=== PATIENT | male | born 1995 | race Caucasian/White ===

== ENCOUNTER 2020-12-20 16:34 | Emergency (ER) | payer SELFPAY ==
[~2020-12-20 16:34] MED LIST: ASPIRIN CHEWABL81 MG PO
[2020-12-20 17:42] LABS: BUN/CREATININE RATIO 9 (0-10)
[2020-12-20 17:44] LABS: HEMOGLOBIN 17.5 gm/dl (14.0-17.5); RED BLOOD COUNT 5.39 M/UL (4.20-5.50); WHITE BLOOD COUNT 7.2 K/UL (4.5-11.0)
[2020-12-20] MEDS ORDERED: ZOFRAN ODT 4 MG4 MG PO (19:31)
[2020-12-20] MEDS ORDERED: BENTYL 10MG CAP10 MG PO (19:31)
[2020-12-20] MEDS ORDERED: COLACE 100MG C100 MG PO (19:31)
[2020-12-20] MEDS ORDERED: PROTONIX40 MG PO (19:31)
== END 2020-12-20 19:40 | disposition home or self-care (01) ==
LOC: ER1 16:34
PROVIDERS: Physician Assistant Medical
DX: R10.13 Epigastric pain (principal); R11.2 Nausea with vomiting, unspecified; F17.210 Nicotine dependence, cigarettes, uncomplicated
CPT/HCPCS: 71045; 80053; 81001; 83690; 85025; 96365; 99284; Q9967

== ENCOUNTER 2020-12-26 16:35 | Emergency (ER) | payer SELFPAY ==
[~2020-12-26 16:35] MED LIST changes: +BENTYL 10MG CAP10 MG PO; +COLACE 100MG C100 MG PO; +PROTONIX40 MG PO; +ZOFRAN ODT 4 MG4 MG PO
[2020-12-26 19:32] LABS: HEMOGLOBIN 17.3 gm/dl (14.0-17.5); RED BLOOD COUNT 5.35 M/UL (4.20-5.50); WHITE BLOOD COUNT 8.5 K/UL (4.5-11.0)
[2020-12-26 19:46] LABS: BUN/CREATININE RATIO 8 (0-10)
[2020-12-26] MEDS ORDERED: TRANSDERM-SCOP1 EACH TOP (20:42)
== END 2020-12-26 21:10 | disposition home or self-care (01) ==
LOC: ER1 16:35
PROVIDERS: Preventive Medicine Occupational Medicine
DX: K58.9 Irritable bowel syndrome, unspecified (principal); F17.210 Nicotine dependence, cigarettes, uncomplicated
CPT/HCPCS: 80053; 81001; 83605; 83690; 85025; 85652; 86140; 87070; 87086; 87205; 99284; J2405; J7030

== ENCOUNTER 2022-03-05 18:11 | Emergency (ER) | payer OTHER ==
[~2022-03-05 18:11] MED LIST changes: +TRANSDERM-SCOP1 EACH TOP
== END 2022-03-05 20:59 | disposition left against medical advice (07) ==
LOC: ER1 18:11
DX: Z53.21 Procedure and treatment not carried out due to patient leaving prior to being seen by health care provider (principal)